=== PATIENT | female | born 1980 | race Asian ===

== ENCOUNTER 2022-02-15 23:37 | Emergency (ER) | payer OTHER ==
[2022-02-15 23:44] VITALS: RESP 18; TEMP 98.1; BMI 31.5
[2022-02-15] MEDS ORDERED: ALBUTEROL SO4 2.5/IPRATROPIUM 0.5 INH SOL 3 ML VIAL.NEB. NEB ONE ×2 (23:48→23:57)
[2022-02-15] MEDS ORDERED: diphenhydrAMINE HCL 25 MG CAPSULE (FP) PO ONE (23:51)
[2022-02-15] MEDS ORDERED: diphenhydrAMINE HCL 50 MG CAPSULE ONE (23:57)
[2022-02-16 00:40] VITALS: BP 152/93; PULSE 80
== END 2022-02-16 00:40 | disposition home or self-care (01) ==
LOC: FER 23:37
PROC: 3E0F7GC Introduction of Other Therapeutic Substance into Respiratory Tract, Via Natural or Artificial Opening (ICD-10-PCS; principal; 2022-02-15)
DX: T78.40XA Allergy, unspecified, initial encounter (principal)
CPT/HCPCS: 99283-25

== ENCOUNTER → 2023-12-27 | Day surgery (SDC) | payer BC, OTHER | END | disposition home or self-care (01) | LOC: JRADUS-SUR 10:09 | PROC: 0HBT0ZX Excision of Right Breast, Open Approach, Diagnostic (ICD-10-PCS; principal; 2023-12-27) | DX: N63.10 Unspecified lump in the right breast, unspecified quadrant (principal); D24.1 Benign neoplasm of right breast | CPT/HCPCS: 19083; 77065-TC; 87899; 88305-TC; A4648 ==